=== PATIENT | male | born 1935 | race Hispanic/Latino ===

== ENCOUNTER 2019-10-28 15:47 | Inpatient (IN) | payer OTHER ==
[~2019-10-28] VITALS: Ht 172.7 cm; Wt 67.6 kg
[2019-10-28 16:38] LABS: BASOPHILS % (AUTO) 0.4 % (0.0-5.0); EOSINOPHILS % (AUTO) 0.3 % (0.0-8.0); HEMATOCRIT 38.8 % (42-54); LYMPHOCYTES % (AUTO) 18.2 % (21.0-51.0); MEAN CORPUSCULAR HEMOGLOBIN 30.7 pg (27.0-33.0); MEAN CORPUSCULAR HGB CONC 33.2 g/dL (32.0-36.0); MEAN CORPUSCULAR VOLUME 92.4 fL (79-99); MONOCYTES % (AUTO) 8.8 % (3.0-13.0); PLATELET COUNT (AUTO) 179 K/uL (130-400); RED CELL DISTRIBUTION WIDTH 13.2 % (11.0-15.5); WHITE BLOOD COUNT (AUTO) 9.8 K/uL (4.8-10.8)
[2019-10-28 17:02] LABS: CREATININE 1.1 mg/dL (0.5-1.5); POTASSIUM 4.5 mmol/L (3.5-5.1)
[2019-10-28 17:06] LABS: ALBUMIN 2.6 g/dL (3.5-5.0); TOTAL PROTEIN, SERUM 7.5 g/dL (6.0-8.3)
[2019-10-28] MEDS ORDERED: SODIUM CHLORIDE 0.9% 1000ML 1,000 ML IV ONE (17:20)
[2019-10-28] MEDS ORDERED: ONDANSETRON HCL 4 MG/2 ML VIAL ONE (18:57)
[2019-10-28 21:32] LABS: APPEARANCE,URINE Clear (CLEAR); BILIRUBIN,URINE Negative (NEGATIVE); COLOR,URINE Yellow (YELLOW); GLUCOSE, URINE (UA) Negative (NEGATIVE); KETONES,URINE Negative (NEGATIVE); LEUKOCYTE ESTERASE ,URINE Negative (NEGATIVE); NITRATE,URINE Negative (NEGATIVE); OCCULT BLOOD,URINE Negative (NEGATIVE); PH,URINE 6.5 (5.0-8.0); PROTEIN,URINE Negative (NEGATIVE)
[2019-10-29] MEDS ORDERED: ONDANSETRON HCL 4 MG/2 ML VIAL IV PRN
[2019-10-29] MEDS ORDERED: SODIUM CHLORIDE 0.9% 1000ML 1,000 ML IV ONE (05:56)
[2019-10-29 07:56] LABS: BASOPHILS % (AUTO) 0.4 % (0.0-5.0); EOSINOPHILS % (AUTO) 0.4 % (0.0-8.0); HEMATOCRIT 36.3 % (42-54); LYMPHOCYTES % (AUTO) 24.7 % (21.0-51.0); MEAN CORPUSCULAR HGB CONC 33.1 g/dL (32.0-36.0); MEAN CORPUSCULAR VOLUME 93.8 fL (79-99); MONOCYTES % (AUTO) 9.6 % (3.0-13.0); NEUTROPHILS % (AUTO) 64.8 % (40.0-77.0); PLATELET COUNT (AUTO) 154 K/uL (130-400); RED BLOOD CELL COUNT(AUTO) 3.87 MIL/uL (4.50-6.20); RED CELL DISTRIBUTION WIDTH 13.5 % (11.0-15.5); WHITE BLOOD COUNT (AUTO) 6.9 K/uL (4.8-10.8)
[2019-10-29 08:26] LABS: HEMOGLOBIN A1C 6.8 % (4.0-6.0)
[2019-10-29 08:28] LABS: ALBUMIN 2.4 g/dL (3.5-5.0); BILIRUBIN,TOTAL 1.1 mg/dL (0.2-1.0); POTASSIUM 4.7 mmol/L (3.5-5.1); TOTAL PROTEIN, SERUM 6.5 g/dL (6.0-8.3)
[2019-10-29 08:59] LABS: B-TYPE NATRIURETIC PEPTIDE 221 pg/mL (0-100)
[2019-10-29] MEDS ORDERED: MEGESTROL 400 MG/10 ML UDCUP PO SCH (09:00)
[2019-10-29] MEDS ORDERED: FAMOTIDINE/PF 20 MG/2 ML VIAL IV SCH (09:00)
[2019-10-29] MEDS ORDERED: FAMOTIDINE/PF 20 MG/2 ML VIAL IV ONE ×2 (09:11→20:56)
[2019-10-29] MEDS ORDERED: LACTULOSE 20 GM/30 ML UDCUP ONE (09:32)
--- NOTE | 2019-10-29 12:25 | NUR ---
INITIAL Patient lives with spouse. Emergency contact is daughter, Kristy Harris, [phone]. No home services. DME: [facility]. Patient needs help with ADL's . As per daughter patient is taking chemotherapy in liquid form and has become more weak in the past week. Patient does not drive. PCP is in [place]. Pharmacy is [facility] located in [place]. DCP is home. Patient has no insurance or benefits. He is a not citizen or legal resident. Patient was provided with community resources for post hospitalization follow up. Patient was also provided with Good RX card for prescriptions and educated on [employer] $4 medication program and [employer] $5 medication program. Patient is being assisted by [employer] for financial matters. Addendum: 10/29/19 at 1231 by SAIDA HEBERT SS Amended: Links added.
[2019-10-29] MEDS: SODIUM CHLORIDE 0.9% 1000ML 1,000 ML IV SCH ×2 (20:00→23:07)
[2019-10-29 22:55] VITALS: BP 155/73
[2019-10-29] MEDS ORDERED: LACT10SO62 PO (23:42)
[2019-10-29] MEDS ORDERED: HYDR-4060 PO (23:42)
[2019-10-29] MEDS ORDERED: PROP10TA10 PO (23:42)
[2019-10-29] MEDS ORDERED: METF-445 PO (23:42)
[2019-10-29] MEDS ORDERED: LENV4CAP PO (23:42)
[2019-10-29] MEDS ORDERED: ASCO-360 PO (23:42)
[2019-10-30 04:00] VITALS: BP 143/74
[2019-10-30 05:39] LABS: BASOPHILS % (AUTO) 0.4 % (0.0-5.0); EOSINOPHILS % (AUTO) 0.3 % (0.0-8.0); HEMATOCRIT 36.3 % (42-54); LYMPHOCYTES % (AUTO) 22.7 % (21.0-51.0); MEAN CORPUSCULAR HEMOGLOBIN 31.1 pg (27.0-33.0); MEAN CORPUSCULAR HGB CONC 33.3 g/dL (32.0-36.0); MEAN CORPUSCULAR VOLUME 93.3 fL (79-99); MONOCYTES % (AUTO) 8.7 % (3.0-13.0); NEUTROPHILS % (AUTO) 67.6 % (40.0-77.0); PLATELET COUNT (AUTO) 147 K/uL (130-400); RED BLOOD CELL COUNT(AUTO) 3.89 MIL/uL (4.50-6.20); RED CELL DISTRIBUTION WIDTH 13.3 % (11.0-15.5); WHITE BLOOD COUNT (AUTO) 6.9 K/uL (4.8-10.8)
[2019-10-30 05:53] LABS: INR 1.07 (0.85-1.15); PARTIAL THROMBOPLASTIN TIME 27.1 SEC (26.3-35.5); PROTHROMBIN TIME 11.2 SEC (9.6-11.6)
[2019-10-30 06:18] LABS: ALBUMIN 2.1 g/dL (3.5-5.0); BILIRUBIN,TOTAL 0.8 mg/dL (0.2-1.0); CREATININE 1.1 mg/dL (0.5-1.5); MAGNESIUM 1.8 mg/dL (1.80-2.40); PHOSPHORUS 3.5 mg/dL (2.5-4.9); POTASSIUM 4.1 mmol/L (3.5-5.1); TOTAL PROTEIN, SERUM 6.6 g/dL (6.0-8.3)
[2019-10-30 07:23] VITALS: BP 140/61
[2019-10-30] MEDS: MEGESTROL 400 MG/10 ML UDCUP PO SCH ×2 (09:31→21:09)
[2019-10-30] MEDS: FAMOTIDINE/PF 20 MG/2 ML VIAL IV SCH ×2 (09:32→21:09)
[2019-10-30 11:07] VITALS: BP 126/57
--- NOTE | 2019-10-30 11:28 | NUR ---
ONCOLOGY CONSULT Called consult for Dr. Rosario. Spoke to Misti. She will convey message.
[2019-10-30] MEDS ORDERED: HYDROCODONE/ACETAMINOPHEN 5/325 MG TAB PO SCH (11:30)
--- NOTE | 2019-10-30 14:01 | NUR ---
RD Notification Pt admitted with FTT, Liver CA. Recommend Nutritional supplementation TID with meals. Pt with Diabetes mellitus;Recommend Glucerna nutritional shake. Also recommend protein supplementation of 30mL ProMod TID with meals. Full liquid diet at this time. RD to continue to monitor. Addendum: 10/30/19 at [address] Amended: Links added.
[2019-10-30 15:42] VITALS: BP 136/66
[2019-10-30] MEDS: SODIUM CHLORIDE 0.9% 1000ML 1,000 ML IV SCH (16:42)
[2019-10-30] MEDS: METFORMIN HCL 850 MG TABLET PO SCH (16:48)
[2019-10-30] MEDS: POLYETHYLENE GLYCOL 3350 17 GM POWD.PACK PO SCH ×2 (18:00→21:16)
[2019-10-30] MEDS ORDERED: POLYETHYLENE GLYCOL 3350 17 GM POWD.PACK ONE (18:22)
[2019-10-30 18:24] VITALS: BP 138/63
--- NOTE | 2019-10-30 18:39 | NUR ---
MIRALAX Called for constipation medication S/T CT scan report. However, patient stated he had a good bowelmovement yesterday and stated he does not feel he needs any medication to help him go. His abdomen is soft. He denied any needs. Stated if he feels he needs it, he will call for the miralax but for now he states he does not want it nor needs it.
[2019-10-30 20:07] VITALS: BP 138/63
[2019-10-30] MEDS ORDERED: ONDA8TAB65 PO (21:07)
[2019-10-30] MEDS: ASCORBIC ACID 500 MG TAB PO SCH (21:09)
[2019-10-30] MEDS: LACTULOSE 20 GM/30 ML UDCUP PO SCH (21:09)
[2019-10-30] MEDS: PROPRANOLOL HCL 10 MG TAB PO SCH (21:09)
[2019-10-31] VITALS (7 sets, daily range): BP systolic 116–142; BP diastolic 53–67
[2019-10-31] MEDS: METFORMIN HCL 850 MG TABLET PO SCH ×2 (05:50→16:46)
[2019-10-31] MEDS ORDERED: LENVATINIB MESYLATE PO SCH (09:00)
[2019-10-31] MEDS: FAMOTIDINE/PF 20 MG/2 ML VIAL IV SCH ×2 (09:12→21:29)
[2019-10-31] MEDS: ASCORBIC ACID 500 MG TAB PO SCH ×2 (09:12→21:35)
[2019-10-31] MEDS: MEGESTROL 400 MG/10 ML UDCUP PO SCH ×2 (09:13→21:29)
[2019-10-31] MEDS: PROPRANOLOL HCL 10 MG TAB PO SCH ×2 (09:13→21:29)
[2019-10-31] MEDS: LACTULOSE 20 GM/30 ML UDCUP PO SCH ×2 (09:13→21:30)
[2019-10-31] MEDS: SODIUM CHLORIDE 0.9% 1000ML 1,000 ML IV SCH ×2 (13:29→21:37)
--- NOTE | 2019-10-31 17:46 | NUR ---
DIET Advanced diet to GI Soft as ordered by Dr. Pak. Patient was requesting something more to eat than full liquids. Started him on GI Soft. Slater sandwich and peanut butter and white crakers; canned fruit no peel.
[2019-11-01] VITALS: BP 117/60
[2019-11-01 03:08] VITALS: BP 131/57
[2019-11-01 05:51] LABS: HEMATOCRIT 32.2 % (42-54); MEAN CORPUSCULAR HGB CONC 32.9 g/dL (32.0-36.0); MEAN CORPUSCULAR VOLUME 94.2 fL (79-99); PLATELET COUNT (AUTO) 158 K/uL (130-400); RED BLOOD CELL COUNT(AUTO) 3.42 MIL/uL (4.50-6.20); RED CELL DISTRIBUTION WIDTH 13.7 % (11.0-15.5)
[2019-11-01 06:12] LABS: ALBUMIN 2.1 g/dL (3.5-5.0); BILIRUBIN,TOTAL 0.7 mg/dL (0.2-1.0); CREATININE 0.9 mg/dL (0.5-1.5); POTASSIUM 4.2 mmol/L (3.5-5.1); TOTAL PROTEIN, SERUM 6.3 g/dL (6.0-8.3)
[2019-11-01 07:58] VITALS: BP 133/57
[2019-11-01] MEDS: MEGESTROL 400 MG/10 ML UDCUP PO SCH (09:03)
[2019-11-01] MEDS: ASCORBIC ACID 500 MG TAB PO SCH (09:03)
[2019-11-01] MEDS: PROPRANOLOL HCL 10 MG TAB PO SCH (09:04)
[2019-11-01] MEDS: POLYETHYLENE GLYCOL 3350 17 GM POWD.PACK PO SCH (09:04)
[2019-11-01] MEDS: METFORMIN HCL 850 MG TABLET PO SCH (09:04)
[2019-11-01] MEDS: FAMOTIDINE/PF 20 MG/2 ML VIAL IV SCH (09:04)
[2019-11-01] MEDS: LACTULOSE 20 GM/30 ML UDCUP PO SCH (09:04)
[2019-11-01] MEDS ORDERED: MEGE400O4 PO (10:42)
[2019-11-01 11:41] VITALS: BP 128/53
== END 2019-11-01 11:50 | disposition home or self-care (01) | DRG 441 ==
LOC: EDH 15:47 → EDHIP 15:48 → 3CH 10-29 22:06
PROVIDERS: ADMIT Internal Medicine; ATTEND Internal Medicine
DX: K72.90 Hepatic failure, unspecified without coma (principal); E43 Unspecified severe protein-calorie malnutrition; E87.1 Hypo-osmolality and hyponatremia; C22.8 Malignant neoplasm of liver, primary, unspecified as to type; C79.9 Secondary malignant neoplasm of unspecified site; D64.9 Anemia, unspecified; E11.9 Type 2 diabetes mellitus without complications; E86.0 Dehydration; I10 Essential (primary) hypertension; Z68.22 Body mass index [BMI] 22.0-22.9, adult; Z80.0 Family history of malignant neoplasm of digestive organs; Z83.3 Family history of diabetes mellitus
CPT/HCPCS: 36415; 74150; 80053; 81003; 82140; 82550; 82948; 83036; 83690; 83735; 83880; 84100; 84145; 84443; 84484; 85025; 85027; 85610; 85730; 93005; 97039; G0378; J2405; J3490; J7030

== ENCOUNTER 2019-11-09 13:34 | Emergency (ER) | payer OTHER ==
[~2019-11-09 13:34] MED LIST: ASCO-360 PO; HYDR-4060 PO; LACT10SO62 PO; LENV4CAP PO; MEGE400O4 PO; METF-445 PO; ONDA8TAB65 PO; PROP10TA10 PO
[2019-11-09 14:38] LABS: BASOPHILS % (AUTO) 0.2 % (0.0-5.0); EOSINOPHILS % (AUTO) 0.1 % (0.0-8.0); HEMATOCRIT 37.6 % (42-54); MEAN CORPUSCULAR HEMOGLOBIN 31.3 pg (27.0-33.0); MEAN CORPUSCULAR HGB CONC 33.2 g/dL (32.0-36.0); MEAN CORPUSCULAR VOLUME 94.2 fL (79-99); MONOCYTES % (AUTO) 8.2 % (3.0-13.0); NEUTROPHILS % (AUTO) 71.2 % (40.0-77.0); PLATELET COUNT (AUTO) 237 K/uL (130-400); RED BLOOD CELL COUNT(AUTO) 3.99 MIL/uL (4.50-6.20); WHITE BLOOD COUNT (AUTO) 9.8 K/uL (4.8-10.8)
[2019-11-09] MEDS ORDERED: ONDANSETRON HCL 4 MG/2 ML VIAL ONE (14:44)
[2019-11-09] MEDS ORDERED: MORPHINE SULFATE 4 MG/1ML SYG ONE (14:44)
[2019-11-09] MEDS ORDERED: SODIUM CHLORIDE 0.9% 500ML 500 ML IV ONE (14:44)
[2019-11-09 14:55] LABS: CREATININE 1.1 mg/dL (0.5-1.5); POTASSIUM 4.5 mmol/L (3.5-5.1)
[2019-11-09 14:59] LABS: ALBUMIN 2.5 g/dL (3.5-5.0); BILIRUBIN,DIRECT 0.5 mg/dL (0.0-0.3); BILIRUBIN,TOTAL 0.8 mg/dL (0.2-1.0); TOTAL PROTEIN, SERUM 7.2 g/dL (6.0-8.3)
[2019-11-09 16:15] LABS: INR 0.95 (0.85-1.15); PARTIAL THROMBOPLASTIN TIME 25.2 SEC (26.3-35.5); PROTHROMBIN TIME 10.3 SEC (9.6-11.6)
== END 2019-11-09 18:09 | disposition home or self-care (01) ==
LOC: EDH 13:34
DX: R10.13 Epigastric pain (principal); C22.9 Malignant neoplasm of liver, not specified as primary or secondary; E11.9 Type 2 diabetes mellitus without complications; Z87.891 Personal history of nicotine dependence; Z98.890 Other specified postprocedural states
CPT/HCPCS: 36415; 74176; 80048; 80076; 82550; 83690; 84484; 85025; 85610; 85730; 93005; 96374; 96375; 99285; J2270; J2405; J7040